=== PATIENT | female | born 1950 | race Caucasian/White ===

== ENCOUNTER 2023-07-26 16:06 | Emergency (ER) | payer MEDICARE ==
[~2023-07-26] VITALS: Ht 172.7 cm; Wt 77.0 kg
[2023-07-26] MEDS ORDERED: KETOROLAC TROMETHAMINE 30 MG/ML VIAL IV ONE (16:15)
[2023-07-26] MEDS ORDERED: SODIUM CHLORIDE 0.9% 1,000 ML IV ONE (16:15)
[2023-07-26] MEDS ORDERED: diphenhydrAMINE HCL 50 MG/ML VIAL IV ONE (16:15)
[2023-07-26] MEDS ORDERED: METOCLOPRAMIDE HCL 10 MG/2 ML SDV IV ONE (16:15)
[2023-07-26] MEDS ORDERED: DEXAMETHASONE SOD PHOS 10 MG/ML VIAL IV ONE (16:15)
[2023-07-26 16:39] LABS: BASOPHILS 0.7 % (0-2); EOSINOPHILS 5.1 % (0-6); HEMATOCRIT 41.1 % (35.0-50.0); HEMOGLOBIN 13.5 g/dL (12.0-18.0); LYMPHOCYTES 30.7 % (24-44); MCH 27.7 (27-36); MCHC 32.9 g/dl (30-36); MCV 84.3 fl (81-99); NEUTROPHILS 53.5 % (39-80); PLATELET COUNT 217 K/uL (140-440); RBC 4.87 M/ul (4.3-5.7); RDW 15.2 (10.5-15.0)
[2023-07-26 16:52] LABS: ALBUMIN 3.2 g/dL (3.4-5.0); ALBUMIN/GLOBULIN RATIO 0.8 (1.1-2.4); ANION GAP 11.3 (7-21); BILIRUBIN, TOTAL 0.3 ng/dL (0.2-1.0); BUN/CREATININE RATIO 20.23 (6.0-28.6); CALCIUM 8.1 mg/dL (8.5-10.1); CREATININE, SERUM 0.84 mg/dL (0.55-1.02); POTASSIUM 3.3 mmol/L (3.5-5.1); PROTEIN, TOTAL 7.2 g/dL (6.4-8.2)
[2023-07-26] MEDS ORDERED: MORPHINE SULFATE 4 MG/ML VIAL IV ONE (17:00)
[2023-07-26] MEDS ORDERED: MORPHINE SULFATE 10 MG/ML VIAL IV ONE (17:00)
[2023-07-26] MEDS ORDERED: MORPHINE SULFATE 4 MG/ML VIAL ONE (17:01)
[2023-07-26 18:43] VITALS: BP 160/80
[2023-07-29] MEDS ORDERED: VENTOLIN HFA18 GM INH (09:51)
== END 2023-07-26 18:42 | disposition home or self-care (01) ==
LOC: ED 16:06
PROVIDERS: Emergency Medicine
DX: G43.909 Migraine, unspecified, not intractable, without status migrainosus (principal); Z88.8 Allergy status to other drugs, medicaments and biological substances
CPT/HCPCS: 36415; 80053; 85025; 96374; 96375; 99283-25; J1100; J1200; J1885; J2270; J2765; J7030

== ENCOUNTER 2023-07-27 19:29 | Emergency (ER) | payer MEDICARE ==
[~2023-07-27] VITALS: Ht 172.7 cm; Wt 77.2 kg
--- OUTSIDE RECORDS SUMMARY | 2023-07-27 19:38 | XMS ---
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 - 2 Visits in 30 Days CARE PROVIDERS There are no care providers on record at this time. Kathy has no Care Guidelines for this patient. Anai VISIT COUNT (12 MO.) [facility] TOTAL 2 NOTE: Visits indicate total known visits. ED/[facility] [place]ING (12 MO.) [facility] [place] [facility] COMPLAINT: - HEADACHE 07/26/2023 16:06 [facility] [place] TYPE: Emergency COMPLAINT: - NAUSEA INPATIENT VISIT TRACKING (12 MO.) No inpatient visits to display in this time frame [id number]
[2023-07-27] MEDS ORDERED: diphenhydrAMINE HCL 50 MG/ML VIAL IV ONE (20:15)
[2023-07-27] MEDS ORDERED: KETOROLAC TROMETHAMINE 30 MG/ML VIAL IV ONE (20:15)
[2023-07-27] MEDS ORDERED: LACTATED RINGER'S 1,000 ML IV ONE (20:15)
[2023-07-27] MEDS ORDERED: METOCLOPRAMIDE HCL 10 MG/2 ML SDV IV ONE (20:15)
[2023-07-27] MEDS ORDERED: MORPHINE SULFATE 4 MG/ML VIAL IV ONE ×2 (20:15→22:15)
[2023-07-27] MEDS ORDERED: HYDROCODONE/APAP 10/325 1 TAB PO ONE (22:45)
[2023-07-27 23:17] VITALS: BP 157/97
[2023-07-29] MEDS ORDERED: VENTOLIN HFA18 GM INH (09:51)
== END 2023-07-27 23:19 | disposition home or self-care (01) ==
LOC: ED 19:29
DX: G43.909 Migraine, unspecified, not intractable, without status migrainosus (principal); I10 Essential (primary) hypertension; Z88.8 Allergy status to other drugs, medicaments and biological substances
CPT/HCPCS: 96374; 96375; 96376; 99283-25; A9270; J1200; J1885; J2270; J2765; J7121

== ENCOUNTER 2023-07-30 00:55 | Emergency (ER) | payer MEDICARE ==
[~2023-07-30] VITALS: Ht 172.7 cm; Wt 78.0 kg
--- OUTSIDE RECORDS SUMMARY | ~2023-07-30 | XMS | Continuity of Care Document ---
Demographics + + + | Address | [address] | | | [place] [address] | + + + | Preferred Language | Unknown | + + + | Marital Status | unknown | + + + | Uatsdin Affiliation | Unknown | + + + | Race | White | + + + | Ethnic Group | Unknown | + + + Author + + + | Author | [facility] | + + + | Organization | [facility] | + + + | Address | [address] | | | [place] [address] | + + + | Phone | | + + + Care Team Providers + + + + | Care Supervisor Jewelry Department Name | Role | Phone | + [...]
[~2023-07-30 00:55] MED LIST: VENTOLIN HFA18 GM INH
--- OUTSIDE RECORDS SUMMARY | 2023-07-30 00:59 | XMS ---
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 Guidelines Source: [facility] Guidelines Date: 07/17/2022 Additional Information: Andria Fabian MD\T\nbsp;\T\nbsp; [address]\T\nbsp;\T\nbsp; [place] [address]\T\nbsp;\T\nbsp; \T\nbsp;\T\nbsp; \ T\nbsp;\T\nbsp; Additional care guidelines exist for the following facilities: [facility] ( 02/21/2018 ) Aureliano Pena ( 01/29/2017 ) Anai VISIT COUNT (12 MO.) [address] [place] [address] Aureliano Pena [address] [place] [address] TOTAL 11 NOTE: Visits indicate total known visits. ED/UCC VISIT TRACKING (12 MO.) 07/30/2023 00:56 CAL[facility]IN [facility] TYPE: Emergency COMPLAINT: - MIGRAINE 07/29/2023 09:32 [facility] [place] TYPE: Emergency COMPLAINT: - HEADACHE 01/25/2023 20:02 [facility] DIAGNOSES: - Cellulitis of left lower limb - Chest pain, unspecified - L FOOT PAIN 01/25/2023 11:47 [facility] TYPE: Emergency DIAGNOSES: - Pain in left ankle and joints of left foot - Sprain of other ligament of left ankle, initial encounter - ems to triage - Leg Pain 01/23/2023 13:45 [facility] TYPE: Emergency DIAGNOSES: - Sprain of unspecified ligament of left ankle, initial encounter - Ankle Injury - EMS to Triage 01/22/2023 02:43 [facility] TYPE: Emergency DIAGNOSES: - Sprain of unspecified ligament of left ankle, initial encounter - Ankle injury 10/30/2022 15:52 [facility] TYPE: Emergency DIAGNOSES: - Chest pain, unspecified - Syncope and collapse - SOB/HEAT EXPOSURE 10/29/2022 16:14 [facility] TYPE: Emergency DIAGNOSES: - Chest pain, unspecified - Unspecified abdominal pain - Chest Pain - EMS 10/15/2022 16:54 [facility] TYPE: Emergency DIAGNOSES: - Acute and chronic respiratory failure, unspecified whether with hypoxia or hypercapnia - Moderate persistent asthma with (acute) exacerbation - SOB 10/10/2022 22:21 [facility] TYPE: Emergency DIAGNOSES: - Other chest pain - Chest Pain - EMS - Shortness of Breath 10/04/2022 16:37 [facility] TYPE: Emergency DIAGNOSES: - Chest Pain - EMS - Shortness of Breath INPATIENT VISIT TRACKING (12 MO.) 10/04/2022 16:37 [facility] [place] TYPE: General Medicine DIAGNOSES: - Acute respiratory failure with hypoxia - Moderate persistent asthma with (acute) exacerbation - Other sites of candidiasis - Chest Pain - Shortness of Breath [id number]
[2023-07-30] MEDS ORDERED: HYDROCODONE/ACETA 5/325 TAB PO ONE (01:15)
[2023-07-30] MEDS ORDERED: DEXAMETHASONE SOD PHOS 10 MG/ML VIAL IV ONE (01:30)
[2023-07-30] MEDS ORDERED: PROCHLORPERAZINE EDISYLATE 10 MG/2 ML VIAL IV ONE (01:30)
[2023-07-30] MEDS ORDERED: LACTATED RINGER'S 1,000 ML IV ONE (01:30)
[2023-07-30] MEDS ORDERED: diphenhydrAMINE HCL 50 MG/ML VIAL IV ONE (01:30)
[2023-07-30 02:32] LABS: HEMATOCRIT 41.6 % (35.0-50.0); HEMOGLOBIN 13.5 g/dL (12.0-18.0); MCH 27.3 (27-36); MCHC 32.5 g/dl (30-36); MCV 83.9 fl (81-99); PLATELET COUNT 228 K/uL (140-440); RBC 4.96 M/ul (4.3-5.7); RDW 15.6 (10.5-15.0)
[2023-07-30 02:54] LABS: LYMPHOCYTES, MANUAL DIFF 14; MONOCYTES, MANUAL DIFF 4; NEUTROPHILS, MANUAL DIFF 82
[2023-07-30 02:56] LABS: ALBUMIN/GLOBULIN RATIO 0.91 (1.1-2.4); ANION GAP 13.7 (7-21); BILIRUBIN, TOTAL 0.3 ng/dL (0.2-1.0); BUN/CREATININE RATIO 26.19 (6.0-28.6); CALCIUM 8.7 mg/dL (8.5-10.1); CREATININE, SERUM 0.84 mg/dL (0.55-1.02); POTASSIUM 3.7 mmol/L (3.5-5.1); PROTEIN, TOTAL 6.3 g/dL (6.4-8.2); TSH, 3RD GENERATION 0.341 uIU/mL (0.358-3.740)
[2023-07-30] MEDS ORDERED: ACETAMINOPHEN 325 MG TAB PO ONE (03:00)
[2023-07-30 03:53] VITALS: BP 168/72
== END 2023-07-30 03:53 | disposition home or self-care (01) ==
LOC: ED 00:55
PROVIDERS: Internal Medicine
DX: G43.909 Migraine, unspecified, not intractable, without status migrainosus (principal); I10 Essential (primary) hypertension; Z88.6 Allergy status to analgesic agent; Z91.018 Allergy to other foods; Z79.51 Long term (current) use of inhaled steroids
CPT/HCPCS: 36415; 70450; 80053; 84443; 85025; 86140; 96374; 96375; 99284-25; A9270; J0780; J1100; J1200

== ENCOUNTER 2023-07-31 14:09 | Emergency (ER) | payer MEDICARE ==
[~2023-07-31] VITALS: Ht 172.7 cm; Wt 95.9 kg
--- OUTSIDE RECORDS SUMMARY | 2023-07-31 14:18 | XMS ---
PreManage Notification: ADAM DIAS Security Business Objects Events No recent Security Events currently on file CRITERIA MET - [facility] - 2 Visits in 30 Days - [facility] - Has Care Guidelines CARE PROVIDERS There are no care providers on record at this time. Guidelines Source: [facility] Guidelines Date: 07/17/2022 Additional Information: Andria Fabian MD\T\nbsp;\T\nbsp; [address]\T\nbsp;\T\nbsp; [place] [address]\T\nbsp;\T\nbsp; \T\nbsp;\T\nbsp; \ T\nbsp;\T\nbsp; Additional care guidelines exist for the following facilities: [facility] ( 02/21/2018 ) Aureliano Pena ( 01/29/2017 ) Anai VISIT COUNT (12 MO.) 5 [place] [address] Aureliano Pena TOTAL 14 NOTE: Visits indicate total known visits. ED/UCC VISIT TRACKING (12 MO.) 07/31/2023 14:11 [facility] [place] TYPE: Emergency COMPLAINT: - CHEST PAIN 07/30/2023 00:56 [facility] [place] TYPE: Emergency COMPLAINT: - MIGRAINE 07/29/2023 09:32 [facility] [place] TYPE: Emergency COMPLAINT: - HEADACHE DIAGNOSES: - Allergy status to narcotic agent - Allergy status to other drugs, medicaments and biological substances - Essential (primary) hypertension - Headache, unspecified - Migraine, unspecified, not intractable, without status migrainosus 07/27/2023 19:30 [facility] [place] TYPE: Emergency COMPLAINT: - HEADACHE 07/26/2023 16:06 [facility] [place] TYPE: Emergency COMPLAINT: - NAUSEA DIAGNOSES: - Allergy status to other drugs, medicaments and biological substances - Migraine, unspecified, not intractable, without status migrainosus 01/25/2023 20:02 [facility] TYPE: Emergency DIAGNOSES: - Cellulitis of left lower limb - Chest pain, unspecified - L FOOT PAIN 01/25/2023 11:47 [facility] [place] TYPE: Emergency DIAGNOSES: - Pain in left ankle and joints of left foot - Sprain of other ligament of left ankle, initial encounter - ems to triage - Leg Pain 01/23/2023 13:45 [facility] [place] TYPE: Emergency DIAGNOSES: - Sprain of unspecified ligament of left ankle, initial encounter - Ankle Injury - EMS to Triage 01/22/2023 02:43 [facility] TYPE: Emergency DIAGNOSES: - Sprain of unspecified ligament of left ankle, initial encounter - Ankle injury 10/30/2022 15:52 [facility] TYPE: Emergency DIAGNOSES: - Chest pain, unspecified - Syncope and collapse - SOB/HEAT EXPOSURE 10/29/2022 16:14 [facility] [place] TYPE: Emergency DIAGNOSES: - Chest pain, unspecified - Unspecified abdominal pain - Chest Pain - EMS 10/15/2022 16:54 [facility] TYPE: Emergency DIAGNOSES: - Acute and chronic respiratory failure, unspecified whether with hypoxia or hypercapnia - Moderate persistent asthma with (acute) exacerbation - SOB 10/10/2022 22:21 [facility] [place] TYPE: Emergency DIAGNOSES: - Other chest pain - Chest Pain - EMS - Shortness of Breath 10/04/2022 16:37 [facility] [place] TYPE: Emergency DIAGNOSES: - Chest Pain - EMS - Shortness of Breath INPATIENT VISIT TRACKING (12 MO.) 10/04/2022 16:37 [facility] [place] TYPE: General Medicine DIAGNOSES: - Acute respiratory failure with hypoxia - Moderate persistent asthma with (acute) exacerbation - Other sites of candidiasis - Chest Pain - Shortness of Breath [id number]
[2023-07-31 14:32] LABS: HEMOGLOBIN 14.2 g/dL (12.0-18.0); MCH 27.5 (27-36); MCHC 32.7 g/dl (30-36); MCV 84.1 fl (81-99)
[2023-07-31 14:34] LABS: HEMATOCRIT 43.3 % (35.0-50.0); PLATELET COUNT 279 K/uL (140-440); RBC 5.15 M/ul (4.3-5.7); RDW 15.6 (10.5-15.0)
[2023-07-31 14:51] LABS: BANDS, MANUAL DIFF 1; BASOPHILS, MANUAL DIFF 2; EOSINOPHILS, MANUAL DIFF 1; LYMPHOCYTES, MANUAL DIFF 30; MONOCYTES, MANUAL DIFF 4; NEUTROPHILS, MANUAL DIFF 62
[2023-07-31 14:53] LABS: ALBUMIN 3.4 g/dL (3.4-5.0); ALBUMIN/GLOBULIN RATIO 1.03 (1.1-2.4); ANION GAP 11.8 (7-21); BILIRUBIN, TOTAL 0.3 ng/dL (0.2-1.0); BUN/CREATININE RATIO 20.61 (6.0-28.6); CALCIUM 8.5 mg/dL (8.5-10.1); CREATININE, SERUM 0.97 mg/dL (0.55-1.02); MAGNESIUM 1.7 mg/dL (1.8-2.4); POTASSIUM 2.8 mmol/L (3.5-5.1); PROTEIN, TOTAL 6.7 g/dL (6.4-8.2)
[2023-07-31] MEDS ORDERED: SODIUM CHLORIDE 0.9% 1,000 ML IV PRN (15:15)
[2023-07-31] MEDS ORDERED: diphenhydrAMINE HCL 50 MG/ML VIAL IV ONE (15:30)
[2023-07-31] MEDS ORDERED: KETOROLAC TROMETHAMINE 15 MG/ML VIAL IV ONE (15:30)
[2023-07-31] MEDS ORDERED: PROCHLORPERAZINE EDISYLATE 10 MG/2 ML VIAL IV ONE (15:30)
[2023-07-31 15:58] VITALS: BP 165/75
--- NOTE | 2023-07-31 21:36 | EKG ---
[facility] [address] [facility] [address] [place] [address] Signed Normal sinus rhythm Moderate voltage criteria for LVH, may be normal variant ( R in aVL , [place] product ) Borderline ECG No previous ECGs available Confirmed by Hever Hollins MD () on 07/31/2023 9:36:56 PM Electronically Signed By: HEVER HOLLINS MD 07/31/23 2136 PATIENT NAME: SUNSHINE KAPLANADAM Electrocardiogram DATE OF : 46 PHYSICIAN: HEVER HOLLINS MD REPORT #: [id number] REPORT IS CONFIDENTIAL AND NOT TO BE RELEASED WITHOUT AUTHORIZATION
== END 2023-07-31 16:02 | disposition left against medical advice (07) ==
LOC: ED 14:09
PROVIDERS: Emergency Medicine
DX: R07.89 Other chest pain (principal); R51.9 Headache, unspecified; I10 Essential (primary) hypertension; Z88.5 Allergy status to narcotic agent; Z88.8 Allergy status to other drugs, medicaments and biological substances; Z53.29 Procedure and treatment not carried out because of patient's decision for other reasons
CPT/HCPCS: 36415; 71045; 80053; 83735; 84484; 85025; 93005; 93010; 96374; 96375; J0780; J1200; J1885; J7030

== ENCOUNTER 2023-08-02 20:33 | Emergency (ER) | payer MEDICARE ==
[~2023-08-02] VITALS: Ht 172.7 cm; Wt 95.9 kg
--- OUTSIDE RECORDS SUMMARY | ~2023-08-02 | XMS | Continuity of Care Document ---
Demographics + + + | Address | [address] | | | [place] [address] | + + + | Preferred Language | Unknown | + + + | Marital Status | unknown | + + + | Episcopal Affiliation | Unknown | + + + | Race | Unknown | + + + | Ethnic Group | Not or | + + + Author + + + | Author | [facility] | + + + | Organization | [facility] | + + + | Address | [address] | | | [place] [address] | + + + | Phone | | + + + Care Team Providers + + + + | Care Screen Tacker Name | Role | Phone | + [...]
--- OUTSIDE RECORDS SUMMARY | 2023-08-02 20:40 | XMS ---
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 Guidelines Source: [facility] Guidelines Date: 07/17/2022 Additional Information: Andria Fabian MD\T\nbsp;\T\nbsp; [address]\T\nbsp;\T\nbsp; [place] [address]\T\nbsp;\T\nbsp; \T\nbsp;\T\nbsp; \ T\nbsp;\T\nbsp; Additional care guidelines exist for the following facilities: [facility] ( 02/21/2018 ) Aureliano Pena ( 01/29/2017 ) Anai VISIT COUNT (12 MO.) [address] [place] [address] Aureliano Pena TOTAL 16 NOTE: Visits indicate total known visits. ED/UCC VISIT TRACKING (12 MO.) 08/02/2023 20:34 [facility] [place] TYPE: Emergency COMPLAINT: - TOOTHACHE 07/31/2023 17:52 [facility] [place] TYPE: Emergency COMPLAINT: - ANXIETY 07/31/2023 14:11 [facility] [place] TYPE: Emergency COMPLAINT: - CHEST PAIN DIAGNOSES: - Allergy status to narcotic agent - Allergy status to other drugs, medicaments and biological substances - Essential (primary) hypertension - Headache, unspecified - Other chest pain - Procedure and treatment not carried out because of patient's decision for other reasons 07/30/2023 00:[address] [facility] [place] Nicky Portillo [place] TYPE: Emergency COMPLAINT: - MIGRAINE DIAGNOSES: - Allergy status to analgesic agent - Allergy to other foods - Essential (primary) hypertension - shelter (current) use of inhaled steroids - Migraine, unspecified, not intractable, without status migrainosus 07/29/2023 09:[address] [facility] [place] COMPLAINT: - HEADACHE DIAGNOSES: - Allergy status to narcotic agent - Allergy status to other drugs, medicaments and biological substances - Essential (primary) hypertension - Headache, unspecified - Migraine, unspecified, not intractable, without status migrainosus 07/27/2023 19:[address] [facility] [place] HGio [place]illo [place] TYPE: Emergency COMPLAINT: - HEADACHE DIAGNOSES: - Allergy status to other drugs, medicaments and biological substances - Essential (primary) hypertension - Migraine, unspecified, not intractable, without status migrainosus 07/26/2023 16:06 [facility] [place] TYPE: Emergency COMPLAINT: - NAUSEA DIAGNOSES: - Allergy status to other drugs, medicaments and biological substances - Migraine, unspecified, not intractable, without status migrainosus 01/25/2023 20:02 [facility] TYPE: Emergency DIAGNOSES: - Cellulitis of left lower limb - Chest pain, unspecified - L FOOT PAIN 01/25/2023 11:47 [facility]NA [facility] TYPE: Emergency DIAGNOSES: - Pain in left ankle and joints of left foot - Sprain of other ligament of left ankle, initial encounter - ems to triage - Leg Pain 01/23/2023 13:45 [facility] TYPE: Emergency DIAGNOSES: - Sprain of unspecified ligament of left ankle, initial encounter - Ankle Injury - EMS to Triage 01/22/2023 02:43 [facility] TYPE: Emergency DIAGNOSES: - Sprain of unspecified ligament of left ankle, initial encounter - Ankle injury 10/30/2022 15:52 [facility] TYPE: Emergency DIAGNOSES: - Chest pain, unspecified - Syncope and collapse - SOB/HEAT EXPOSURE 10/29/2022 16:14 [facility] [place] TYPE: Emergency DIAGNOSES: - Chest pain, unspecified - Unspecified abdominal pain - Chest Pain - EMS 10/15/2022 16:54 [facility] TYPE: Emergency DIAGNOSES: - Acute and chronic respiratory failure, unspecified whether with hypoxia or hypercapnia - Moderate persistent asthma with (acute) exacerbation - SOB 10/10/2022 22:21 [facility] [place] TYPE: Emergency DIAGNOSES: - Other chest pain - Chest Pain - EMS - Shortness of Breath 10/04/2022 16:37 [facility] [place] TYPE: Emergency DIAGNOSES: - Chest Pain - EMS - Shortness of Breath INPATIENT VISIT TRACKING (12 MO.) 10/04/2022 [facility] DIAGNOSES: - Acute respiratory failure with hypoxia - Moderate persistent asthma with (acute) exacerbation - Other sites of candidiasis - Chest Pain - Shortness of Breath [id number]
[2023-08-02] MEDS ORDERED: HYDROCODONE/ACETA 5/325 TAB PO ONE (21:00)
[2023-08-02] MEDS ORDERED: HYDROCODON-ACE1 EA10 PO (21:04)
[2023-08-02] MEDS ORDERED: CEPHALEXIN500 M1 PO (21:04)
[2023-08-02] MEDS ORDERED: CEPHALEXIN MONOHYDRATE 500 MG HOME.PACK PO ONE (21:15)
[2023-08-02 21:28] VITALS: BP 162/86
== END 2023-08-02 21:29 | disposition home or self-care (01) ==
LOC: ED 20:33
DX: K04.7 Periapical abscess without sinus (principal); I10 Essential (primary) hypertension; Z88.8 Allergy status to other drugs, medicaments and biological substances
CPT/HCPCS: 99285-25; A9270

== ENCOUNTER 2023-08-03 16:16 | Emergency (ER) | payer MEDICARE ==
[~2023-08-03] VITALS: Ht 172.7 cm; Wt 77.7 kg
[~2023-08-03 16:16] MED LIST changes: +CEPHALEXIN500 M1 PO; +HYDROCODON-ACE1 EA10 PO
--- OUTSIDE RECORDS SUMMARY | 2023-08-03 16:24 | XMS ---
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 - 2 Visits in 30 Days - [facility] - Has Care Guidelines CARE PROVIDERS There are no care providers on record at this time. Guidelines Source: [facility] Guidelines Date: 07/17/2022 Additional Information: Andria Fabian MD\T\nbsp;\T\nbsp; [address]\T\nbsp;\T\nbsp; [place] [address]\T\nbsp;\T\nbsp; \T\nbsp;\T\nbsp; \ T\nbsp;\T\nbsp; Additional care guidelines exist for the following facilities: [facility] ( 02/21/2018 ) Aureliano Pena ( 01/29/2017 ) Anai VISIT COUNT (12 MO.) 8 [place] [address] Aureliano Pena TOTAL 17 NOTE: Visits indicate total known visits. ED/UCC VISIT TRACKING (12 MO.) 08/03/2023 16:16 [facility] [place] TYPE: Emergency COMPLAINT: - CHEST PAIN 08/02/2023 20:34 [facility] [place] TYPE: Emergency COMPLAINT: - TOOTHACHE 07/31/2023 17:52 [facility] [place] TYPE: Emergency COMPLAINT: - ANXIETY 07/31/2023 14:11 [facility] TYPE: Emergency COMPLAINT: - CHEST PAIN DIAGNOSES: - Allergy status to narcotic agent - Allergy status to other drugs, medicaments and biological substances - Essential (primary) hypertension - Headache, unspecified - Other chest pain - Procedure and treatment not carried out because of patient's decision for other reasons 07/30/2023 00:56 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 [place] TYPE: Emergency COMPLAINT: - HEADACHE DIAGNOSES: - Allergy status to narcotic agent - Allergy status to other drugs, medicaments and biological substances - Essential (primary) hypertension - Headache, unspecified - Migraine, unspecified, not intractable, without status migrainosus 07/27/2023 19:30 [facility] TYPE: Emergency COMPLAINT: - HEADACHE DIAGNOSES: - Allergy status to other drugs, medicaments and biological substances - Essential (primary) hypertension - Migraine, unspecified, not intractable, without status migrainosus 07/26/2023 16:06 [facility] TYPE: Emergency COMPLAINT: - NAUSEA DIAGNOSES: - Allergy status to other drugs, medicaments and biological substances - Migraine, unspecified, not intractable, without status migrainosus 01/25/2023 20:02 [facility] TYPE: Emergency DIAGNOSES: - Cellulitis of left lower limb - Chest pain, unspecified - L FOOT PAIN 01/25/2023 11:47 [facility] [place] TYPE: Emergency DIAGNOSES: - Pain in left ankle and joints of left foot - Sprain of other ligament of left ankle, initial encounter - ems to triage - Leg Pain 01/23/2023 13:45 [facility] [place] TYPE: Emergency DIAGNOSES: - Sprain of unspecified ligament of left ankle, initial encounter - Ankle Injury - EMS to Triage 01/22/2023 02:43 [facility] DIAGNOSES: - Sprain of unspecified ligament of left ankle, initial encounter - Ankle injury 10/30/2022 15:52 [facility] DIAGNOSES: - Chest pain, unspecified - Syncope and collapse - SOB/HEAT EXPOSURE 10/29/2022 16:14 [facility] [place] TYPE: Emergency DIAGNOSES: - Chest pain, unspecified - Unspecified abdominal pain - Chest Pain - EMS 10/15/2022 16:54 Aureliano Pena [facility] TYPE: Emergency DIAGNOSES: - Acute and chronic respiratory failure, unspecified whether with hypoxia or hypercapnia - Moderate persistent asthma with (acute) exacerbation - SOB 10/10/2022 22:21 [facility] [place] TYPE: Emergency DIAGNOSES: - Other chest pain - Chest Pain - EMS - Shortness of Breath 10/04/2022 16:37 [facility] [place] TYPE: Emergency DIAGNOSES: - Chest Pain - EMS - Shortness of Breath INPATIENT VISIT TRACKING (12 MO.) 10/04/2022 16:37 [facility] TYPE: General Medicine DIAGNOSES: - Acute respiratory failure with hypoxia - Moderate persistent asthma with (acute) exacerbation - Other sites of candidiasis - Chest Pain - Shortness of Breath [id number]
[2023-08-03] MEDS ORDERED: NITROGLYCERIN 0.4 MG SUBL SL PRN (16:45)
[2023-08-03 16:53] LABS: BASOPHILS 0.6 % (0-2); EOSINOPHILS 1.3 % (0-6); HEMATOCRIT 39.9 % (35.0-50.0); HEMOGLOBIN 13.3 g/dL (12.0-18.0); LYMPHOCYTES 18.3 % (24-44); MCH 27.9 (27-36); MCHC 33.4 g/dl (30-36); MCV 83.6 fl (81-99); MONOCYTES 7.6 % (0-12); NEUTROPHILS 72.2 % (39-80); PLATELET COUNT 192 K/uL (140-440); RBC 4.77 M/ul (4.3-5.7); RDW 15.8 (10.5-15.0)
[2023-08-03 17:10] VITALS: BP 156/70
[2023-08-03 17:10] LABS: ALBUMIN/GLOBULIN RATIO 0.91 (1.1-2.4); ANION GAP 11.3 (7-21); BILIRUBIN, TOTAL 0.3 ng/dL (0.2-1.0); BUN/CREATININE RATIO 17.44 (6.0-28.6); CALCIUM 8.6 mg/dL (8.5-10.1); CREATININE, SERUM 0.86 mg/dL (0.55-1.02); POTASSIUM 3.3 mmol/L (3.5-5.1); PROTEIN, TOTAL 6.3 g/dL (6.4-8.2)
--- NOTE | 2023-08-05 12:51 | EKG ---
[facility] [address] [facility] [place] [address] Signed Normal sinus rhythm Minimal voltage criteria for LVH, may be normal variant ( R in aVL ) Borderline ECG No previous ECGs available Confirmed by ELLA DELEON MD ([id number]) on 08/05/2023 12:51:46 PM Electronically Signed By: ELLA DELEON 08/05/23 1251 PATIENT NAME: ADAM DIAS Electrocardiogram DATE OF : 46 PHYSICIAN: ELLA DELEON REPORT #: [id number] REPORT IS CONFIDENTIAL AND NOT TO BE RELEASED WITHOUT AUTHORIZATION
== END 2023-08-03 17:10 | disposition left against medical advice (07) ==
LOC: ED 16:16
PROVIDERS: Emergency Medicine
DX: R07.89 Other chest pain (principal); Z53.29 Procedure and treatment not carried out because of patient's decision for other reasons; I10 Essential (primary) hypertension; Z88.6 Allergy status to analgesic agent; Z91.018 Allergy to other foods; Z88.8 Allergy status to other drugs, medicaments and biological substances
CPT/HCPCS: 36415; 80053; 84484; 85025; 93005; 93010; 99285-25

== ENCOUNTER 2023-08-08 12:21 | Emergency (ER) | payer MEDICARE ==
[~2023-08-08] VITALS: Ht 172.7 cm; Wt 99.7 kg
--- OUTSIDE RECORDS SUMMARY | ~2023-08-08 | XMS | Continuity of Care Document ---
Demographics + + + | Address | [address] | | | [place] [address] | + + + | Preferred Language | Unknown | + + + | Marital Status | unknown | + + + | Mormonism Affiliation | Unknown | + + + | Race | White | + + + | Ethnic Group | Not or | + + + Author + + + | Author | [facility] | + + + | Organization | [facility] | + + + | Address | [address] | | | [place] [address] | + + + | Phone | | + + + Care Team Providers + + + + | Care Dough Sheeter Name | Role | Phone | + [...]
--- OUTSIDE RECORDS SUMMARY | 2023-08-08 12:28 | XMS ---
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 Guidelines Source: [facility] Guidelines Date: 07/17/2022 Additional Information: Andria Fabian MD\T\nbsp;\T\nbsp; [address]\T\nbsp;\T\nbsp; [place] [address]\T\nbsp;\T\nbsp; \T\nbsp;\T\nbsp; \ T\nbsp;\T\nbsp; Additional care guidelines exist for the following facilities: [facility] ( 02/21/2018 ) Aureliano Pena ( 01/29/2017 ) Anai VISIT COUNT (12 MO.) [address] [place] [address] Aureliano Pena TOTAL 19 NOTE: Visits indicate total known visits. ED/UCC VISIT TRACKING (12 MO.) 08/08/2023 12:22 [facility] [place] TYPE: Emergency COMPLAINT: - CHEST PAIN 08/06/2023 10:54 [facility] [place] TYPE: Emergency COMPLAINT: - KIDNEY PAIN DIAGNOSES: - Allergy status to analgesic agent - Allergy status to other drugs, medicaments and biological substances - Allergy to other foods - Essential (primary) hypertension - Nausea with vomiting, unspecified - Unspecified abdominal pain 08/03/2023 16:16 [facility] [place] TYPE: Emergency COMPLAINT: - CHEST PAIN DIAGNOSES: - Allergy status to analgesic agent - Allergy status to other drugs, medicaments and biological substances - Allergy to other foods - Essential (primary) hypertension - Other chest pain - Procedure and treatment not carried out because of patient's decision for other reasons 08/02/2023 20:34 [facility] [place] TYPE: Emergency COMPLAINT: - TOOTHACHE DIAGNOSES: - Allergy status to other drugs, medicaments and biological substances - Essential (primary) hypertension - Other specified disorders of teeth and supporting structures - Periapical abscess without sinus 07/31/2023 17:52 [facility] [place] TYPE: Emergency [...] patient's decision for other reasons 07/30/2023 00:56 [facility] [place]: [place] COMPLAINT: - MIGRAINE DIAGNOSES: - Allergy status to analgesic agent - Allergy to other foods - Essential (primary) hypertension - 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 - Migraine, unspecified, not intractable, without status migrainosus 07/29/2023 09:32 [facility] [place] TYPE: Emergency COMPLAINT: - HEADACHE DIAGNOSES: - Allergy status to narcotic agent - Allergy status to other drugs, medicaments and biological substances - Essential (primary) hypertension - Headache, unspecified - Migraine, unspecified, not intractable, without status migrainosus 07/27/2023 19:30 [facility] [place] TYPE: Emergency COMPLAINT: - HEADACHE DIAGNOSES: - Allergy status to other drugs, medicaments and biological substances - Essential (primary) hypertension - Migraine, unspecified, not intractable, without status migrainosus 07/26/2023 16:06 [facility] TYPE: Emergency COMPLAINT: - NAUSEA DIAGNOSES: - Allergy status to other drugs, medicaments and biological substances - Migraine, unspecified, not intractable, without status migrainosus 01/25/2023 20:02 [facility] TYPE: Emergency DIAGNOSES: - Cellulitis of left lower limb - Chest pain, unspecified - L FOOT PAIN 01/25/2023 11:47 [facility] TYPE: Emergency DIAGNOSES: - Pain in left ankle and joints of left foot - Sprain of other ligament of left ankle, initial encounter - ems to triage - Leg Pain 01/23/2023 13:45 [facility] TYPE: Emergency DIAGNOSES: - Sprain of unspecified ligament of left ankle, initial encounter - Ankle Injury - EMS to Triage 01/22/2023 02:[address] [facility] TYPE: Emergency DIAGNOSES: - Sprain of unspecified ligament of left ankle, initial encounter - Ankle injury 10/30/2022 15:[address] [facility] TYPE: Emergency DIAGNOSES: - Chest pain, unspecified - Syncope and collapse - SOB/HEAT EXPOSURE 10/29/2022 16:14 [facility] [place] TYPE: Emergency DIAGNOSES: - Chest pain, unspecified - Unspecified abdominal pain - Chest Pain - EMS 10/15/2022 16:[address] [facility] TYPE: Emergency DIAGNOSES: - Acute and chronic respiratory failure, unspecified whether with hypoxia or hypercapnia - Moderate persistent asthma with (acute) exacerbation - SOB 10/10/2022 22:21 [facility] TYPE: Emergency DIAGNOSES: - Other chest pain - Chest Pain - EMS - Shortness of Breath 10/04/2022 16:37 [facility] TYPE: Emergency DIAGNOSES: - Chest Pain - EMS - Shortness of Breath INPATIENT VISIT TRACKING (12 MO.) 10/04/2022 16:37 [facility] TYPE: General Medicine DIAGNOSES: - Acute respiratory failure with hypoxia - Moderate persistent asthma with (acute) exacerbation - Other sites of candidiasis - Chest Pain - Shortness of Breath [id number]
[2023-08-08 12:44] LABS: BASOPHILS 0.5 % (0-2); EOSINOPHILS 1.5 % (0-6); HEMATOCRIT 39.1 % (35.0-50.0); HEMOGLOBIN 12.9 g/dL (12.0-18.0); LYMPHOCYTES 21.3 % (24-44); MCH 27.9 (27-36); MCV 84.5 fl (81-99); MONOCYTES 7.8 % (0-12); NEUTROPHILS 68.9 % (39-80); PLATELET COUNT 197 K/uL (140-440); RBC 4.62 M/ul (4.3-5.7); RDW 15.7 (10.5-15.0)
[2023-08-08] MEDS ORDERED: LORazepam 2 MG/ML VIAL IV ONE (12:45)
[2023-08-08] MEDS ORDERED: KETOROLAC TROMETHAMINE 15 MG/ML VIAL IV ONE (12:45)
[2023-08-08 13:01] LABS: ALBUMIN 2.9 g/dL (3.4-5.0); ALBUMIN/GLOBULIN RATIO 0.81 (1.1-2.4); ANION GAP 14.5 (7-21); BILIRUBIN, TOTAL 0.5 ng/dL (0.2-1.0); BUN/CREATININE RATIO 10.71 (6.0-28.6); CALCIUM 8.6 mg/dL (8.5-10.1); CREATININE, SERUM 0.84 mg/dL (0.55-1.02); MAGNESIUM 1.9 mg/dL (1.8-2.4); POTASSIUM 3.5 mmol/L (3.5-5.1); PROTEIN, TOTAL 6.5 g/dL (6.4-8.2)
[2023-08-08] MEDS ORDERED: NAPROSYN500 MG PO (14:23)
[2023-08-08 14:54] VITALS: BP 134/66
--- NOTE | 2023-08-09 11:58 | EKG ---
[facility] [address] [place] [address] Signed Normal sinus rhythm Minimal voltage criteria for LVH, may be normal variant ( R in aVL ) Borderline ECG When compared with ECG of 03-AUG-2023 16:23, No significant change was found Confirmed by Nishant Zapien ([id number]) on 08/09/2023 11:58:30 AM Electronically Signed By: NISHANT ZAPIEN MD 08/09/23 1158 PATIENT NAME: ADAM DIAS Electrocardiogram DATE OF : 46 PHYSICIAN: NISHANT ZAPIEN MD REPORT #: [id number] REPORT IS CONFIDENTIAL AND NOT TO BE RELEASED WITHOUT AUTHORIZATION
== END 2023-08-08 14:56 | disposition home or self-care (01) ==
LOC: ED 12:21
PROVIDERS: Emergency Medicine
DX: R07.89 Other chest pain (principal); I10 Essential (primary) hypertension; Z88.6 Allergy status to analgesic agent; Z91.018 Allergy to other foods; Z88.8 Allergy status to other drugs, medicaments and biological substances; Z90.49 Acquired absence of other specified parts of digestive tract
CPT/HCPCS: 36415; 71045; 80053; 83735; 84484; 85025; 85379; 93005; 93010; 96374; 96375; 99285-25; J1885; J2060

== ENCOUNTER 2023-08-10 09:26 | Emergency (ER) | payer MEDICARE ==
[~2023-08-10] VITALS: Ht 172.7 cm; Wt 95.1 kg
--- OUTSIDE RECORDS SUMMARY | ~2023-08-10 | XMS | Continuity of Care Document ---
Demographics + + + | Address | [address] | | | [place] [address] | + + + | Preferred Language | Unknown | + + + | Marital Status | unknown | + + + | Samaritan Affiliation | Unknown | + + + | Race | White | + + + | Ethnic Group | Not or | + + + Author + + + | Author | [facility] | + + + | Organization | [facility] | + + + | Address | [address] | | | [place] [address] | + + + | Phone | | + + + Care Team Providers + + + + | Care Bank Officer Name | Role | Phone | + [...]
[~2023-08-10 09:26] MED LIST changes: +NAPROSYN500 MG PO
--- OUTSIDE RECORDS SUMMARY | 2023-08-10 09:34 | XMS ---
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 Guidelines Source: [facility] Guidelines Date: 07/17/2022 Additional Information: Andria Fabian MD\T\nbsp;\T\nbsp; [address]\T\nbsp;\T\nbsp; [place] [address]\T\nbsp;\T\nbsp; \T\nbsp;\T\nbsp; \ T\nbsp;\T\nbsp; Additional care guidelines exist for the following facilities: [facility] ( 02/21/2018 ) Aureliano Pena ( 01/29/2017 ) Anai VISIT COUNT (12 MO.) [address] [address] Aureliano Pena TOTAL 20 NOTE: Visits indicate total known visits. ED/UCC VISIT TRACKING (12 MO.) 08/10/2023 09:27 [facility] [place] TYPE: Emergency COMPLAINT: - SHORTNESS OF BREATH 08/08/2023 12:22 [facility] [place] TYPE: Emergency COMPLAINT: - CHEST PAIN DIAGNOSES: - Acquired absence of other specified parts of digestive tract - Allergy status to analgesic agent - Allergy status to other drugs, medicaments and biological substances - Allergy to other foods - Chest pain, unspecified - Essential (primary) hypertension - Other chest pain 08/06/2023 10:54 [facility] TYPE: Emergency COMPLAINT: - KIDNEY PAIN DIAGNOSES: - Allergy status to analgesic agent - Allergy status to other drugs, medicaments and biological substances - Allergy to other foods - Essential (primary) hypertension - Nausea with vomiting, unspecified - Unspecified abdominal pain 08/03/2023 16:[address] [facility] [place] TYPE: Emergency COMPLAINT: - CHEST PAIN DIAGNOSES: - Allergy status to analgesic agent - Allergy status to other drugs, medicaments and biological substances - Allergy to other foods - Essential (primary) hypertension - Other chest pain - Procedure and treatment not carried out because of patient's decision for other reasons 08/02/2023 20:[address] [facility] [place] TYPE: Emergency COMPLAINT: - TOOTHACHE DIAGNOSES: - Allergy status to other drugs, medicaments and biological substances - Essential (primary) hypertension - Other specified disorders of teeth and supporting structures - Periapical abscess without sinus 07/31/2023 17:[address] [facility] [place] TYPE: Emergency COMPLAINT: - ANXIETY 07/31/2023 14:[address] [facility] [place] TYPE: Emergency COMPLAINT: - CHEST PAIN DIAGNOSES: - Allergy status to narcotic agent - Allergy status to other drugs, medicaments and biological substances - Essential (primary) hypertension - Headache, unspecified - Other chest pain - Procedure and treatment not carried out because of patient's decision for other reasons 07/30/2023 00:[address] [facility] [place] TYPE: Emergency COMPLAINT: - MIGRAINE DIAGNOSES: - Allergy status to analgesic agent - Allergy to other foods - Essential (primary) hypertension - MCFP (current) use of inhaled steroids - Migraine, unspecified, not intractable, without status migrainosus 07/29/2023 09:[address] [facility] [place] TYPE: Emergency COMPLAINT: - [...] not intractable, without status migrainosus 01/25/2023 20:02 [facility] TYPE: Emergency DIAGNOSES: - Cellulitis of left lower limb - Chest pain, unspecified - L FOOT PAIN 01/25/2023 11:47 [facility] [place] TYPE: Emergency DIAGNOSES: - Pain in left ankle and joints of left foot - Sprain of other ligament of left ankle, initial encounter - ems to triage - Leg Pain 01/23/2023 13:45 [facility] [place] TYPE: Emergency DIAGNOSES: - Sprain of unspecified ligament of left ankle, initial encounter - Ankle Injury - EMS to Triage 01/22/2023 02:43 [facility] TYPE: Emergency DIAGNOSES: - Sprain of unspecified ligament of left ankle, initial encounter - Ankle injury 10/30/2022 15:52 [facility] TYPE: Emergency DIAGNOSES: - Chest pain, unspecified - Syncope and collapse - SOB/HEAT EXPOSURE 10/29/2022 16:14 [facility] [place] TYPE: Emergency DIAGNOSES: - Chest pain, unspecified - Unspecified abdominal pain - Chest Pain - EMS 10/15/2022 16:54 [facility] TYPE: Emergency DIAGNOSES: - Acute and chronic respiratory failure, unspecified whether with hypoxia or hypercapnia - Moderate persistent asthma with (acute) exacerbation - SOB 10/10/2022 22:21 [facility] [place] TYPE: Emergency DIAGNOSES: - Other chest pain - Chest Pain - EMS - Shortness of Breath 10/04/2022 16:37 [facility] [place] TYPE: Emergency DIAGNOSES: - Chest Pain - EMS - Shortness of Breath INPATIENT VISIT TRACKING (12 MO.) 10/04/2022 16:37 [facility] [place] TYPE: General Medicine DIAGNOSES: - Acute respiratory failure with hypoxia - Moderate persistent asthma with (acute) exacerbation - Other sites of candidiasis - Chest Pain - Shortness of Breath [email or web address]
[2023-08-10] MEDS ORDERED: DEXAMETHASONE SOD PHOS 10 MG/ML VIAL IV ONE (11:00)
[2023-08-10] MEDS ORDERED: diphenhydrAMINE HCL 50 MG/ML VIAL IV ONE (11:00)
[2023-08-10] MEDS ORDERED: METOCLOPRAMIDE HCL 10 MG/2 ML SDV IV ONE (11:00)
[2023-08-10] MEDS ORDERED: ACETAMINOPHEN 325 MG TAB PO ONE (11:00)
[2023-08-10] MEDS ORDERED: SODIUM CHLORIDE 0.9% 1,000 ML IV PRN ×2 (11:00→13:00)
[2023-08-10] MEDS ORDERED: PROCHLORPERAZINE EDISYLATE 10 MG/2 ML VIAL IV ONE (13:00)
[2023-08-10] MEDS ORDERED: HALOPERIDOL LACTATE 5 MG/ML VIAL IV ONE (13:00)
[2023-08-10] MEDS ORDERED: ONDANSETRON ODT8 MG PO ×2 (14:44)
[2023-08-10 14:59] VITALS: BP 180/94
[2023-08-10 15:03] LABS: BILIRUBIN, URINE NEGATIVE (negative); BLOOD/HGB, URINE NEGATIVE (Negative); KETONE, URINE NEGATIVE (Negative); LEUK ESTERASE, URINE NEGATIVE (negative); NITRITE, URINE NEGATIVE (negative)
[2023-08-10 15:12] LABS: BACTERIA, URINE NONE SEEN /hpf (negative); CRYSTALS, URINE NONE SEEN (0-1+); EPITHELIAL CELLS, URINE SQUAMOUS 2+ /lpf (0-1+); RED BLOOD CELLS, URINE 0-1 /hpf (0-5); WHITE BLOOD CELLS, URINE 0-1 /HPF (0-5)
[2023-08-10 15:13] LABS: CASTS, URINE NONE SEEN \\lpf; COLLECTION TYPE, URINE CLEAN CATCH; REFLEX CULTURE, URINE No (No)
[2023-08-13] MEDS ORDERED: ONDANSETRON ODT8 MG PO (12:45)
== END 2023-08-10 14:59 | disposition home or self-care (01) ==
LOC: ED 09:26
PROVIDERS: Emergency Medicine
DX: G43.909 Migraine, unspecified, not intractable, without status migrainosus (principal); R10.9 Unspecified abdominal pain; I10 Essential (primary) hypertension; Z88.8 Allergy status to other drugs, medicaments and biological substances
CPT/HCPCS: 81001; 96361; 96374; 96375; 99284-25; A9270; J0780; J1100; J1200; J1630; J2765; J7030

== ENCOUNTER 2023-08-11 08:56 | Emergency (ER) | payer MEDICARE ==
[~2023-08-11] VITALS: Ht 172.7 cm; Wt 77.0 kg
--- OUTSIDE RECORDS SUMMARY | ~2023-08-11 | XMS | Continuity of Care Document ---
Demographics + + + | Address | [address] | | | [place] [address] | + + + | Preferred Language | Unknown | + + + | Marital Status | unknown | + + + | Jehovah'S Witness Affiliation | Unknown | + + + | Race | White | + + + | Ethnic Group | Not or | + + + Author + + + | Author | [facility] | + + + | Organization | [facility] | + + + | Address | [address] | | | [place] [address] | + + + | Phone | | + + + Care Team Providers + + + + | Care Applications Developer Name | Role | Phone | + [...]
[~2023-08-11 08:56] MED LIST changes: +ONDANSETRON ODT8 MG PO
--- OUTSIDE RECORDS SUMMARY | 2023-08-11 09:05 | XMS ---
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 Guidelines Source: Guidelines Date: 07/17/2022 Additional Information: Andria Fabian MD\T\nbsp;\T\nbsp; [address]\T\nbsp;\T\nbsp; [place] [address]\T\nbsp;\T\nbsp; \T\nbsp;\T\nbsp; \ T\nbsp;\T\nbsp; Additional care guidelines exist for the following facilities: [facility] ( 02/21/2018 ) Aureliano Pena ( 01/29/2017 ) Anai VISIT COUNT (12 MO.) [address] [address] Aureliano Pena TOTAL 21 NOTE: Visits indicate total known visits. ED/UCC VISIT TRACKING (12 MO.) 08/11/2023 08:56 [facility] [place] TYPE: Emergency COMPLAINT: - BACK PAIN 08/10/2023 09:27 [facility] [place] TYPE: Emergency COMPLAINT: - SHORTNESS OF BREATH 08/08/2023 12:22 [facility] [place] TYPE: Emergency COMPLAINT: - CHEST PAIN DIAGNOSES: - Acquired absence of other specified parts of digestive tract - Allergy status to analgesic agent - Allergy status to other drugs, medicaments and biological substances - Allergy to other foods - Chest pain, unspecified - Essential (primary) hypertension - Other chest pain 08/06/2023 10:54 [facility] [place] TYPE: Emergency [...] - Periapical abscess without sinus 07/31/2023 17:[address] [facility] [address] [facility] [place] TYPE: Emergency COMPLAINT: - ANXIETY 07/31/2023 14:[address] 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 [place] TYPE: Emergency COMPLAINT: - HEADACHE DIAGNOSES: - Allergy status to narcotic agent - Allergy status to other drugs, medicaments and biological substances - Essential (primary) hypertension - Headache, unspecified - Migraine, unspecified, not intractable, without status migrainosus 07/27/2023 19:30 [facility] [place] TYPE: Emergency COMPLAINT: - HEADACHE DIAGNOSES: - Allergy status to other drugs, medicaments and biological substances - Essential (primary) hypertension - Migraine, unspecified, not intractable, without status migrainosus 07/26/2023 16:06 [facility] [place] TYPE: Emergency COMPLAINT: - NAUSEA DIAGNOSES: - Allergy status to other drugs, medicaments and biological substances - Migraine, unspecified, not intractable, without status migrainosus 01/25/2023 20:02 [facility] TYPE: Emergency DIAGNOSES: - Cellulitis of left lower limb - Chest pain, unspecified - L FOOT PAIN [facility] DI[facility]ES: - Pain in left ankle and joints of left foot - Sprain of other ligament of left ankle, initial encounter - ems to triage - Leg Pain 01/23/2023 13[facility] DIAGNOSES: - Sprain of unspecified ligament of left ankle, initial encounter - Ankle Injury - EMS to Triage 01/22/2023 02:43 [facility] TYPE: Emergency DIAGNOSES: - Sprain of unspecified ligament of left ankle, initial encounter - Ankle injury 10/30/2022 15:52 [facility] TYPE: Emergency DIAGNOSES: - Chest pain, unspecified - Syncope and collapse - SOB/HEAT EXPOSURE 10/29/2022 16:14 [facility] [place] TYPE: Emergency DIAGNOSES: - Chest pain, unspecified - Unspecified abdominal pain - Chest Pain - EMS 10/15/2022 16:54 [facility] [place] [facility] TYPE: Emergency DIAGNOSES: - Acute and chronic respiratory failure, unspecified whether with hypoxia or hypercapnia - Moderate persistent asthma with (acute) exacerbation - SOB 10/10/2022 22:21 [facility] [place] TYPE: Emergency DIAGNOSES: - Other chest pain - Chest Pain - EMS - Shortness of Breath Plus 1 More Visit INPATIENT VISIT TRACKING (12 MO.) 10/04/2022 16:37 [facility] [place] TYPE: General Medicine DIAGNOSES: - Acute respiratory failure with hypoxia - Moderate persistent asthma with (acute) exacerbation - Other sites of candidiasis - Chest Pain - Shortness of Breath [id number]
[2023-08-11] MEDS ORDERED: ACETAMINOPHEN 500 MG TAB PO ONE (09:30)
[2023-08-11 09:38] VITALS: BP 158/91
[2023-08-13] MEDS ORDERED: ONDANSETRON ODT8 MG PO (12:45)
== END 2023-08-11 09:32 | disposition home or self-care (01) ==
LOC: ED 08:56
DX: M54.9 Dorsalgia, unspecified (principal); R59.0 Localized enlarged lymph nodes; I10 Essential (primary) hypertension; Z88.0 Allergy status to penicillin; Z88.8 Allergy status to other drugs, medicaments and biological substances
CPT/HCPCS: 99283; A9270

== ENCOUNTER 2023-08-18 23:29 | Emergency (ER) | payer MEDICARE ==
[~2023-08-18] VITALS: Ht 172.7 cm; Wt 85.0 kg
[~2023-08-18 23:29] MED LIST changes: +CARAFATE1 GM PO; +PROTONIX40 MG PO
--- OUTSIDE RECORDS SUMMARY | 2023-08-18 23:36 | XMS ---
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 Guidelines Source: [facility] Guidelines Date: 07/17/2022 Additional Information: Andria Fabian MD\T\nbsp;\T\nbsp; [address]\T\nbsp;\T\nbsp; [place] [address]\T\nbsp;\T\nbsp; \T\nbsp;\T\nbsp; \ T\nbsp;\T\nbsp; Additional care guidelines exist for the following facilities: [facility] ( 02/21/2018 ) Aureliano Pena ( 01/29/2017 ) Anai VISIT COUNT (12 MO.) [address] [address] Aureliano Pena TOTAL 31 NOTE: Visits indicate total known visits. ED/UCC VISIT TRACKING (12 MO.) 08/18/2023 23:30 [facility] [place] TYPE: Emergency COMPLAINT: - ANXIETY 08/18/2023 17:54 [facility] [place] TYPE: Emergency COMPLAINT: - BLOOD IN STOOL 08/18/2023 07:32 [facility] [place] TYPE: Emergency DIAGNOSES: - Malingerer [conscious simulation] - Other amnesia - NAUSEA AND VOMITING 08/17/2023 16:19 [facility] [place] TYPE: Emergency DIAGNOSES: - Contusion of left lower leg, initial encounter - Contusion of right lower leg, initial encounter - Encounter for observation for suspected ingested foreign body ruled out - LEG PAIN 08/17/2023 07:21 [facility] [place] TYPE: Emergency DIAGNOSES: - Diarrhea, unspecified - Headache, unspecified - Nausea with vomiting, unspecified - Other chronic pain - NAUSEA AND VOMITING 08/16/2023 12:47 [facility] [place] TYPE: Emergency DIAGNOSES: - Headache, unspecified - CHEST PAIN BACK PAIN 08/16/2023 07:25 [facility] [place] TYPE: Emergency DIAGNOSES: - Chest pain, unspecified - Headache, unspecified - Homelessness unspecified - CHEST PAIN 08/15/2023 19:23 [facility] [place] TYPE: Emergency DIAGNOSES: - Candidiasis of skin and nail - Cellulitis of abdominal wall - Migraine, unspecified, not intractable, without status migrainosus - Unspecified abdominal pain - Flank Pain/ Wound Check 08/14/2023 11:21 [facility] [place] TYPE: Emergency COMPLAINT: - VOMITING DIAGNOSES: - Allergy status to other drugs, medicaments and biological substances - Essential (primary) hypertension - Hematemesis 08/13/2023 10:07 [facility] [place] TYPE: Emergency COMPLAINT: - LOW BACK/CHEST PAIN DIAGNOSES: - Allergy status to analgesic agent - Allergy status to other drugs, medicaments and biological substances - Allergy to other foods - Chest pain, unspecified - Dehydration - Essential (primary) hypertension - Migraine, unspecified, not intractable, without status migrainosus - Other correction (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 - Unspecified asthma, uncomplicated 08/11/2023 08:[address] [facility] [place] TYPE: Emergency COMPLAINT: - BACK PAIN DIAGNOSES: - Allergy status to other drugs, medicaments and biological substances - Allergy status to penicillin - Dorsalgia, unspecified - Essential (primary) hypertension - Localized enlarged lymph nodes 08/10/2023 09:27 [facility] [place] TYPE: Emergency COMPLAINT: - SHORTNESS OF BREATH DIAGNOSES: - Allergy status to other drugs, medicaments and biological substances - Essential (primary) hypertension - Headache, unspecified - Migraine, unspecified, not intractable, without status migrainosus - Unspecified abdominal pain 08/08/2023 12:22 [facility] [place] TYPE: Emergency COMPLAINT: - CHEST PAIN DIAGNOSES: - Acquired absence of other specified parts of digestive tract - Allergy status to analgesic agent - Allergy status to other drugs, medicaments and biological substances - Allergy to other foods - Chest pain, unspecified - Essential (primary) hypertension - Other chest pain 08/06/2023 10:54 [facility] [place] TYPE: Emergency COMPLAINT: - KIDNEY PAIN DIAGNOSES: - Allergy status to analgesic agent - Allergy status to other drugs, medicaments and biological substances - Allergy to other foods - Essential (primary) hypertension - Nausea with vomiting, unspecified - Unspecified abdominal pain 08/03/2023 16:16 [facility] [place] TYPE: Emergency COMPLAINT: - CHEST PAIN DIAGNOSES: - Allergy status to analgesic agent - Allergy status to other drugs, medicaments and biological substances - Allergy to other foods - Essential (primary) hypertension - Other chest pain - Procedure and treatment not carried out because of patient's decision for other reasons 08/02/2023 20:34 [facility] [place] TYPE: Emergency COMPLAINT: - TOOTHACHE DIAGNOSES: - Allergy status to other drugs, medicaments and biological substances - Essential (primary) hypertension - Other specified disorders of teeth and supporting structures - Periapical abscess without sinus 07/31/2023 17:52 [facility] [place] TYPE: Emergency COMPLAINT: - ANXIETY 07/31/2023 14:11 [facility] [place] TYPE: Emergency COMPLAINT: - CHEST PAIN DIAGNOSES: - Allergy status to narcotic agent - Allergy status to other drugs, medicaments and biological substances - Essential (primary) hypertension - Headache, unspecified - Other chest pain - Procedure and treatment not carried out because of patient's decision for other reasons 07/30/2023 00:56 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 [place] TYPE: Emergency COMPLAINT: - HEADACHE DIAGNOSES: - Allergy status to narcotic agent - Allergy status to other drugs, medicaments and biological substances - Essential (primary) hypertension - Headache, unspecified - Migraine, unspecified, not intractable, without status migrainosus Plus 11 More Visits INPATIENT VISIT TRACKING (12 MO.) 10/04/2022 16:37 [facility] [place] TYPE: General Medicine DIAGNOSES: - Acute respiratory failure with hypoxia - Moderate persistent asthma with (acute) exacerbation - Other sites of candidiasis - Chest Pain - Shortness of Breath [email or web address]
[2023-08-18] MEDS ORDERED: diphenhydrAMINE HCL 50 MG/ML VIAL IM ONE (23:45)
[2023-08-18] MEDS ORDERED: OLANZapine 10 MG VIAL IM ONE (23:45)
[2023-08-19] MEDS ORDERED: ZYPREXA5 MG PO (00:11)
[2023-08-19] MEDS ORDERED: hydrOXYzine pamoate 50 MG HOME.PACK PO ONE (00:15)
[2023-08-19] MEDS ORDERED: hydrOXYzine pamoate 50 MG HOME.PACK ONE (00:22)
[2023-08-19 00:56] VITALS: BP 138/81
[2023-08-20] MEDS ORDERED: DIFLUCAN200 MG PO (20:30)
[2023-08-21] MEDS ORDERED: LOMOTIL TABLET1 EACH PO (01:50)
[2023-08-21] MEDS ORDERED: PROMETHEGAN25 MG PR (01:52)
== END 2023-08-19 01:03 | disposition home or self-care (01) ==
LOC: ED 23:29
DX: F41.0 Panic disorder [episodic paroxysmal anxiety] (principal); I10 Essential (primary) hypertension; G43.909 Migraine, unspecified, not intractable, without status migrainosus; J45.909 Unspecified asthma, uncomplicated; Z88.8 Allergy status to other drugs, medicaments and biological substances; Z79.899 Other long term (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
CPT/HCPCS: 96372; 99283

== ENCOUNTER 2023-08-20 17:27 | Emergency (ER) | payer MEDICARE ==
[~2023-08-20] VITALS: Ht 172.7 cm; Wt 96.6 kg
--- OUTSIDE RECORDS SUMMARY | ~2023-08-20 | XMS | Continuity of Care Document ---
Demographics + + + | Address | [address] | | | [place] [address] | + + + | Preferred Language | Unknown | + + + | Marital Status | unknown | + + + | Lutheran Affiliation | Unknown | + + + | Race | White | + + + | Ethnic Group | Not or | + + + Author + + + | Author | [facility] | + + + | Organization | [facility] | + + + | Address | [address] | | | [place] [address] | + + + | Phone | | + + + Care Team Providers + + + + | Care Special Education Coordinator Name | Role | Phone | + [...]
[~2023-08-20 17:27] MED LIST changes: +ZYPREXA5 MG PO
--- OUTSIDE RECORDS SUMMARY | 2023-08-20 17:34 | XMS ---
PreManage Notification: ADAM DIAS Security Neurology Director Events No recent Security Events currently on file CRITERIA MET - 6 ED Visits in 6 Months - [facility] - 2 Visits in 30 Days - [facility] - Has Care Guidelines CARE PROVIDERS There are no care providers on record at this time. Guidelines Source: [facility] Guidelines Date: 07/17/2022 Additional Information: Andria Fabian MD\T\nbsp;\T\nbsp; [address]\T\nbsp;\T\nbsp; [place] [address]\T\nbsp;\T\nbsp; \T\nbsp;\T\nbsp; \ T\nbsp;\T\nbsp; Additional care guidelines exist for the following facilities: [facility] ( 02/21/2018 ) Aureliano Pena ( 01/29/2017 ) [place] VISIT COUNT (12 MO.) [address] [address] Aureliano Pena TOTAL 32 NOTE: Visits indicate total known visits. ED/UCC VISIT TRACKING (12 MO.) 08/20/2023 17:28 [facility] [place] TYPE: Emergency COMPLAINT: - VOMITING, FEVER, BACK PAIN 08/18/2023 23:30 [facility] [place] TYPE: Emergency COMPLAINT: - ANXIETY 08/18/2023 17:54 [facility] [place] TYPE: Emergency COMPLAINT: - BLOOD IN STOOL 08/18/2023 07:32 [facility] [place] TYPE: Emergency DIAGNOSES: - Malingerer [conscious simulation] - Other amnesia - NAUSEA AND VOMITING 08/17/2023 16:19 [facility] [employer] [place] TYPE: Emergency DIAGNOSES: - Contusion of left lower leg, initial encounter - Contusion of right lower leg, initial encounter - Encounter for observation for suspected ingested foreign body ruled out - LEG PAIN 08/17/2023 07:21 [facility] [employer] [place] TYPE: Emergency DIAGNOSES: - Diarrhea, unspecified - Headache, unspecified - Nausea with vomiting, unspecified - Other chronic pain - NAUSEA AND VOMITING 08/16/2023 12:47 [facility] [place] TYPE: Emergency DIAGNOSES: - Headache, unspecified - CHEST PAIN BACK PAIN 08/16/2023 07:25 [facility] [place] TYPE: Emergency DIAGNOSES: - Chest pain, unspecified - Headache, unspecified - Homelessness unspecified - CHEST PAIN 08/15/2023 19:23 [facility] [place] TYPE: Emergency DIAGNOSES: - Candidiasis of skin and nail - Cellulitis of abdominal wall - Migraine, unspecified, not intractable, without status migrainosus - Unspecified abdominal pain - Flank Pain/ Wound Check 08/14/2023 11:21 [facility] [place] TYPE: Emergency COMPLAINT: - VOMITING DIAGNOSES: [...] not intractable, without status migrainosus - Other fci (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 - Unspecified asthma, uncomplicated 08/11/2023 08:[address] [facility] [place] TYPE: Emergency COMPLAINT: - BACK PAIN DIAGNOSES: - Allergy status to other drugs, medicaments and biological substances - Allergy status to penicillin - Dorsalgia, unspecified - Essential (primary) hypertension - Localized enlarged lymph nodes 08/10/2023 09:[address] [facility] [place] TYPE: Emergency COMPLAINT: - SHORTNESS OF BREATH DIAGNOSES: - Allergy status to other drugs, medicaments and biological substances - Essential (primary) hypertension - Headache, unspecified - Migraine, unspecified, not intractable, without status migrainosus - Unspecified abdominal pain 08/08/2023 12:[address] [facility] [place] TYPE: Emergency COMPLAINT: [...] sinus 07/31/2023 17:[address] [facility] [place] TYPE: Emergency COMPLAINT: - ANXIETY 07/31/2023 14:[address] [facility] [place] TYPE: Emergency COMPLAINT: - CHEST PAIN DIAGNOSES: - Allergy status to narcotic agent - Allergy status to other drugs, medicaments and biological substances - Essential (primary) hypertension - Headache, unspecified - Other chest pain - Procedure and treatment not carried out because of patient's decision for other reasons 07/30/2023 00:[address] 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
[2023-08-20] MEDS ORDERED: ONDANSETRON 4 MG TAB ODT SL ONE (19:45)
[2023-08-20 19:57] LABS: HEMOGLOBIN 12.3 g/dL (12.0-18.0); MCH 27.7 (27-36)
[2023-08-20 19:59] LABS: BASOPHILS 0.3 % (0-2); EOSINOPHILS 0.4 % (0-6); HEMATOCRIT 37.3 % (35.0-50.0); LYMPHOCYTES 8.7 % (24-44); MCHC 32.9 g/dl (30-36); MCV 84.3 fl (81-99); MONOCYTES 8.3 % (0-12); NEUTROPHILS 82.3 % (39-80); PLATELET COUNT 244 K/uL (140-440); RBC 4.42 M/ul (4.3-5.7); RDW 16.4 (10.5-15.0)
[2023-08-20 20:12] LABS: ALBUMIN 3.4 g/dL (3.4-5.0); ANION GAP 14.1 (7-21); BILIRUBIN, TOTAL 0.9 ng/dL (0.2-1.0); BUN/CREATININE RATIO 15.9 (6.0-28.6); CALCIUM 9.1 mg/dL (8.5-10.1); CREATININE, SERUM 0.88 mg/dL (0.55-1.02); POTASSIUM 3.1 mmol/L (3.5-5.1); PROTEIN, TOTAL 6.8 g/dL (6.4-8.2)
[2023-08-20] MEDS ORDERED: DIFLUCAN200 MG PO (20:30)
[2023-08-20] MEDS ORDERED: FLUCONAZOLE 200 MG TAB PO ONE (20:30)
[2023-08-20] MEDS ORDERED: MICONAZOLE NITRATE 1 EA BTL TOP ONE (20:30)
[2023-08-20 21:10] VITALS: BP 170/63
[2023-08-21] MEDS ORDERED: LOMOTIL TABLET1 EACH PO (01:50)
[2023-08-21] MEDS ORDERED: PROMETHEGAN25 MG PR (01:52)
== END 2023-08-20 21:13 | disposition home or self-care (01) ==
LOC: ED 17:27
PROVIDERS: Family Medicine
DX: B37.2 Candidiasis of skin and nail (principal); I10 Essential (primary) hypertension; Z88.8 Allergy status to other drugs, medicaments and biological substances; Z79.899 Other long term (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
CPT/HCPCS: 36415; 80053; 85025; A9270

== ENCOUNTER 2023-09-03 21:42 | Emergency (ER) | payer MEDICARE ==
[~2023-09-03] VITALS: Ht 172.7 cm; Wt 77.3 kg
--- OUTSIDE RECORDS SUMMARY | ~2023-09-03 | XMS | Continuity of Care Document ---
Demographics + + + | Address | [address] | | | [place] [address] | + + + | Preferred Language | Unknown | + + + | Marital Status | unknown | + + + | Presybeterian Affiliation | Unknown | + + + | Race | White | + + + | Ethnic Group | Not or | + + + Author + + + | Author | [facility] | + + + | Organization | [facility] | + + + | Address | [address] | | | [place] [address] | + + + | Phone | | + + + Care Team Providers + + + + | Care Ux Lead Name | Role | Phone | + [...]
[~2023-09-03 21:42] MED LIST changes: +DIFLUCAN200 MG PO; +LOMOTIL TABLET1 EACH PO; +PROMETHEGAN25 MG PR
--- OUTSIDE RECORDS SUMMARY | 2023-09-03 21:44 | XMS ---
PreManage Notification: ADAM DIAS Security Care Trainer Events No recent Security Events currently on file CRITERIA MET - 6 ED Visits in 6 Months - [facility] - 2 Visits in 30 Days - [facility] - 3 Facilities in 90 Days - [facility] - Has Care Guidelines CARE PROVIDERS There are no care providers on record at this time. Guidelines Source: [facility] Guidelines Date: 07/17/2022 Additional Information: Andria Fabian MD\T\nbsp;\T\nbsp; [address]\T\nbsp;\T\nbsp; [place] [address]\T\nbsp;\T\nbsp; \T\nbsp;\T\nbsp; \ T\nbsp;\T\nbsp; Additional care guidelines exist for the following facilities: [facility] ( 02/21/2018 ) [facility] VISIT COUNT (12 MO.) 19 [facility] 8 [facility] [address] [facility] 4 [facility] 3 [facility] 3 Tish Morrow TOTAL 42 NOTE: Visits indicate total known visits. ED/UCC VISIT TRACKING (12 MO.) 09/03/2023 21:[address] [facility] TYPE: Emergency COMPLAINT: - RIB PAIN 08/31/2023 10:34 Tish Valdovinos [place] TYPE: Emergency COMPLAINT: - Fall_fall - PLEURODYNIA DIAGNOSES: 0. Pleurodynia 1. Pleurodynia 3. Unspecified fall, initial encounter 08[facility]2023 19[facility] COMPLAINT: - CHEST PAIN UNSPECIFIED - Chest [id number] DIAGNOSES: 0. Chest pain, unspecified 1. Other chest pain 08/28/2023 16:39 [facility] TYPE: Emergency DIAGNOSES: - Low back pain, unspecified - Pain in right leg - Back Pain 08/27/2023 10:48 [facility] TYPE: Emergency DIAGNOSES: - Gastric varices - Other chest pain - Solitary pulmonary nodule - Chest Pain 08/24/2023 14:11 [facility] TYPE: Emergency DIAGNOSES: - Back Pain - Chest Pain - Urinary Complaint 08/23/2023 13:59 Tish Valdovinos [place] TYPE: Emergency COMPLAINT: - CHEST PAIN ON BREATHING - Knee Pain_[id number] - PAIN IN LEFT KNEE DIAGNOSES: 0. Pain in left knee 1. Contusion of left knee, initial encounter 4. Fall on same level from slipping, tripping and stumbling without subsequent striking against object, initial encounter 08/22/2023 07:47 [facility] [place] TYPE: Emergency DIAGNOSES: - Cervicalgia - Contusion of unspecified part of head, initial encounter - Pain in thoracic spine - Strain of muscle, fascia and tendon at neck level, initial encounter - Unspecified fall, initial encounter - Unspecified injury of head, initial encounter - BACK PAIN - FALL 08/21/2023 14:26 [facility] [facility] [place] TYPE: Emergency DIAGNOSES: - Erythema intertrigo - Low back pain, unspecified - Other chronic pain - KIDNEY PAIN 08/21/2023 00:41 [facility] [place] TYPE: Emergency COMPLAINT: - VOMITING DIAGNOSES: - Allergy status to other drugs, medicaments and biological substances - Essential (primary) hypertension - Nausea with vomiting, unspecified - Noninfective gastroenteritis and colitis, unspecified - Other rat exterminator (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 - Unspecified asthma, uncomplicated 08/20/2023 17:[address] [facility] [place] TYPE: Emergency COMPLAINT: - VOMITING, FEVER, BACK PAIN DIAGNOSES: - Allergy status to other drugs, medicaments and biological substances - Candidiasis of skin and nail - Essential (primary) hypertension - Other intermediate (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 - Rash and other nonspecific skin eruption 08/18/2023 23:30 [facility] [place] TYPE: Emergency COMPLAINT: - ANXIETY DIAGNOSES: - Allergy status to other drugs, medicaments and biological substances - Anxiety disorder, unspecified - Essential (primary) hypertension - Migraine, unspecified, not intractable, without status migrainosus - Other intermediate (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 - Panic disorder [episodic paroxysmal anxiety] - Unspecified asthma, uncomplicated 08/18/2023 17:54 [facility] [place] [facility] [place] TYPE: Emergency COMPLAINT: - BLOOD IN STOOL DIAGNOSES: - Abnormal levels of other serum enzymes - Allergy status to other drugs, medicaments and biological substances - Allergy to other foods - Diarrhea, unspecified - Essential (primary) hypertension - Generalized anxiety disorder - Major depressive disorder, single episode, unspecified - Unspecified abdominal pain - Unspecified asthma, uncomplicated 08/18/2023 07:32 [facility] [place] TYPE: Emergency DIAGNOSES: - Malingerer [conscious simulation] - Other amnesia - NAUSEA AND VOMITING 08/17/2023 16:19 [facility] [place] TYPE: Emergency DIAGNOSES: - Contusion of left lower leg, initial encounter - Contusion of right lower leg, initial encounter - Encounter for observation for suspected ingested foreign body ruled out - LEG PAIN 08/17/2023 07:21 [facility] [place] TYPE: Emergency DIAGNOSES: - Diarrhea, unspecified - Headache, unspecified - Nausea with vomiting, unspecified - Other chronic pain - NAUSEA AND VOMITING 08/16/2023 12:47 [facility] [place] TYPE: Emergency DIAGNOSES: - Headache, unspecified - CHEST PAIN BACK PAIN 08/16/2023 07:25 [facility] [place] TYPE: Emergency DIAGNOSES: - Chest pain, unspecified - Headache, unspecified - Homelessness unspecified - CHEST PAIN 08/15/2023 19:23 [facility] [place] TYPE: Emergency DIAGNOSES: - Candidiasis of skin and nail - Cellulitis of abdominal wall - Migraine, unspecified, not intractable, without status migrainosus - Unspecified abdominal pain - Flank Pain/ Wound Check 08/14/2023 11:21 [facility] [place] TYPE: Emergency COMPLAINT: - VOMITING DIAGNOSES: - Allergy status to other drugs, medicaments and biological substances - Essential (primary) hypertension - Hematemesis Plus 22 More Visits INPATIENT VISIT TRACKING (12 MO.) 10/04/2022 16:37 [facility] [place] TYPE: General Medicine DIAGNOSES: - Acute respiratory failure with hypoxia - Moderate persistent asthma with (acute) exacerbation - Other sites of candidiasis - Chest Pain - Shortness of Breath [id number]
[2023-09-03 22:16] VITALS: BP 186/87
[2023-09-04] MEDS ORDERED: BACTRIM DS TAB1 EACH PO (01:11)
[2023-09-04] MEDS ORDERED: FLONASE ALLERG9.9 ML NAS (01:11)
[2023-09-04] MEDS ORDERED: CEFDINIR300 MG PO (12:14)
== END 2023-09-03 22:16 | disposition home or self-care (01) ==
LOC: ED 21:42
DX: G89.29 Other chronic pain (principal); I10 Essential (primary) hypertension; Z88.8 Allergy status to other drugs, medicaments and biological substances; Z59.00 Homelessness unspecified
CPT/HCPCS: 99283

== ENCOUNTER 2023-09-04 22:16 | Emergency (ER) | payer MEDICARE ==
[~2023-09-04] VITALS: Ht 172.7 cm; Wt 78.0 kg
--- OUTSIDE RECORDS SUMMARY | ~2023-09-04 | XMS | Continuity of Care Document ---
Demographics + + + | Address | [address] | | | [place] [address] | + + + | Preferred Language | Unknown | + + + | Marital Status | unknown | + + + | Evangelical Affiliation | Unknown | + + + | Race | White | + + + | Ethnic Group | Not or | + + + Author + + + | Author | [facility] | + + + | Organization | [facility] | + + + | Address | [address] | | | [place] [address] | + + + | Phone | | + + + Care Team Providers + + + + | Care Collections Assistant Name | Role | Phone | + + + + Unavailable | Unavailable | + + + + Allergies No information. Encounters No information. Functional Status No information. Immunizations No information. Medications No information. Problems + + + + | date | description | facility | + + + + | 2023-07-09 16:35:06 | Chest Pain, Unspecified | [facility] | + + + + | 2023-07-10 20:47:06 | Chest Pain, Unspecified | [facility] | + + + + | 2023-07-10 20:47:06 | Other Nonspecific Abnormal | [facility] | | | Finding Of Lung Field | | + + + + | 2023-07-12 08:52:06 | Other Chest Pain | [facility] | + + + + | 2023-07-13 [...]
[~2023-09-04 22:16] MED LIST changes: +BACTRIM DS TAB1 EACH PO; +CEFDINIR300 MG PO; +FLONASE ALLERG9.9 ML NAS
--- OUTSIDE RECORDS SUMMARY | 2023-09-04 22:17 | XMS ---
PreManage Notification: ADAM DIAS Security Director Franchise Sales Events No recent Security Events currently on file CRITERIA MET - 6 ED Visits in 6 Months - [facility] - 2 Visits in 30 Days - [facility] - 3 Facilities in 90 Days - [facility] - Has Care Guidelines CARE PROVIDERS There are no care providers on record at this time. Guidelines Source: [facility] Guidelines Date: 07/17/2022 Additional Information: Andria Fabian MD\T\nbsp;\T\nbsp; [address]\T\nbsp;\T\nbsp; [place] [address]\T\nbsp;\T\nbsp; \T\nbsp;\T\nbsp; \ T\nbsp;\T\nbsp; Additional care guidelines exist for the following facilities: [facility] ( 02/21/2018 ) [facility] ( 01/29/2017 ) Anai VISIT COUNT (12 MO.) 22 [facility] 8 [facility] 5 [facility] 4 [facility] 3 [facility] 3 Tish Morrow TOTAL 45 NOTE: Visits indicate total known visits. ED/UCC VISIT TRACKING (12 MO.) 09/04/2023 22:17 [facility] [place] TYPE: Emergency COMPLAINT: - VOMITING 09/04/2023 10:53 [facility] [place] TYPE: Emergency COMPLAINT: - FLANK PAIN 09/03/2023 23:21 [facility] [place] TYPE: Emergency COMPLAINT: - NECK PAIN 09/03/2023 21:43 [facility] TYPE: Emergency COMPLAINT: - RIB PAIN 08/31/2023 10:34 Tish [facility] TYPE: Emergency COMPLAINT: - Fall_fall - PLEURODYNIA DIAGNOSES: 0. Pleurodynia 1. Pleurodynia 3. Unspecified fall, initial encounter 08/30/2023 19:06 Lisa Odalys [place] TYPE: Emergency COMPLAINT: - CHEST PAIN UNSPECIFIED [...] Pain - Urinary Complaint 08/23/2023 13:59 [facility] [place] [facility] COMPLAINT: - CHEST PAIN ON BREATHING - Knee Pain_[id number] - PAIN IN LEFT KNEE DIAGNOSES: 0. Pain in left knee 1. Contusion of left knee, initial encounter 4. Fall on same level from slipping, tripping and stumbling without subsequent striking against object, initial encounter 08/22/2023 07:47 [facility] [place] TYPE: Emergency DIAGNOSES: - Cervicalgia - Contusion of unspecified part of head, initial encounter - Pain in thoracic spine - Strain of muscle, fascia and tendon at neck level, initial encounter - Unspecified fall, initial encounter - Unspecified injury of head, initial encounter - BACK PAIN - FALL 08/21/2023 14:26 [facility] [place] TYPE: Emergency DIAGNOSES: - Erythema intertrigo - Low back pain, unspecified - Other chronic pain - KIDNEY PAIN 08/21/2023 00:41 [facility] [place] TYPE: Emergency COMPLAINT: - VOMITING DIAGNOSES: - Allergy status to other drugs, medicaments and biological substances - Essential (primary) hypertension - Nausea with vomiting, unspecified - Noninfective gastroenteritis and colitis, unspecified - Other [facility] (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 - Unspecified asthma, uncomplicated 08/20/2023 17:28 [facility] [place] TYPE: Emergency COMPLAINT: - VOMITING, FEVER, BACK PAIN DIAGNOSES: - Allergy status to other drugs, medicaments and biological substances - Candidiasis of skin and nail - Essential (primary) hypertension - Other superintendent marine [employer] (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 - Rash and other nonspecific skin eruption 08/18/2023 23:30 [facility] [place] TYPE: Emergency COMPLAINT: - ANXIETY DIAGNOSES: - Allergy status to other drugs, medicaments and biological substances - Anxiety disorder, unspecified - Essential (primary) hypertension - Migraine, unspecified, not intractable, without status migrainosus - Other superintendent marine [employer] (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 - Panic disorder [episodic paroxysmal anxiety] - Unspecified asthma, uncomplicated 08/18/2023 17:54 [facility] [place] TYPE: Emergency COMPLAINT: - BLOOD IN STOOL DIAGNOSES: - Abnormal levels of other serum enzymes - Allergy status to other drugs, medicaments and biological substances - Allergy to other foods - Diarrhea, unspecified - Essential (primary) hypertension - Generalized anxiety disorder - Major depressive disorder, single episode, unspecified - Unspecified abdominal pain - Unspecified asthma, uncomplicated 08/18/2023 07:32 [facility] [place] TYPE: Emergency DIAGNOSES: - Malingerer [conscious simulation] - Other amnesia - NAUSEA AND VOMITING 08/17/2023 16:19 [facility] [place] TYPE: Emergency DIAGNOSES: - Contusion of left lower leg, initial encounter - Contusion of right lower leg, initial encounter - Encounter for observation for suspected ingested foreign body ruled out - LEG PAIN 08/17/2023 07:21 [facility] [place] TYPE: Emergency DIAGNOSES: - Diarrhea, unspecified - Headache, unspecified - Nausea with vomiting, unspecified - Other chronic pain - NAUSEA AND VOMITING 08/16/2023 12:47 [facility] [place] TYPE: Emergency DIAGNOSES: - Headache, unspecified - CHEST PAIN BACK PAIN Plus 25 More Visits INPATIENT VISIT TRACKING (12 MO.) 10/04/2022 16:37 [facility] [place] TYPE: General Medicine DIAGNOSES: - Acute respiratory failure with hypoxia - Moderate persistent asthma with (acute) exacerbation - Other sites of candidiasis - Chest Pain - Shortness of Breath [id number]
[2023-09-04] MEDS ORDERED: LACTATED RINGER'S 1,000 ML IV ONE (23:00)
[2023-09-04] MEDS ORDERED: ondansetron HCL 4 MG/2 ML VIAL IV ONE (23:00)
[2023-09-04] MEDS ORDERED: ONDANSETRON 4 MG HOME.PACK SL ONE (23:30)
[2023-09-04 23:34] LABS: BASOPHILS 0.5 % (0-2); EOSINOPHILS 2.4 % (0-6); HEMATOCRIT 39.7 % (35.0-50.0); LYMPHOCYTES 19.2 % (24-44); MCH 27.8 (27-36); MCHC 32.8 g/dl (30-36); MCV 84.8 fl (81-99); MONOCYTES 8.4 % (0-12); NEUTROPHILS 69.5 % (39-80); PLATELET COUNT 213 K/uL (140-440); RBC 4.69 M/ul (4.3-5.7); RDW 16.6 (10.5-15.0)
[2023-09-04 23:50] LABS: ALBUMIN 3.7 g/dL (3.4-5.0); ALBUMIN/GLOBULIN RATIO 0.97 (1.1-2.4); ANION GAP 13.2 (7-21); BILIRUBIN, TOTAL 0.6 ng/dL (0.2-1.0); BUN/CREATININE RATIO 15.21 (6.0-28.6); CALCIUM 9.3 mg/dL (8.5-10.1); CREATININE, SERUM 0.92 mg/dL (0.55-1.02); POTASSIUM 4.2 mmol/L (3.5-5.1); PROTEIN, TOTAL 7.5 g/dL (6.4-8.2)
[2023-09-05 00:27] VITALS: BP 179/70
== END 2023-09-05 00:33 | disposition home or self-care (01) ==
LOC: ED 22:16
PROVIDERS: Internal Medicine
DX: R11.2 Nausea with vomiting, unspecified (principal); Z59.00 Homelessness unspecified; Z76.5 Malingerer [conscious simulation]; I10 Essential (primary) hypertension; J45.909 Unspecified asthma, uncomplicated; Z88.6 Allergy status to analgesic agent; Z88.8 Allergy status to other drugs, medicaments and biological substances; Z79.899 Other long term (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
CPT/HCPCS: 36415; 80053; 85025; A9270

== ENCOUNTER 2023-10-11 08:38 | Emergency (ER) | payer MEDICARE ==
[~2023-10-11] VITALS: Ht 172.7 cm; Wt 99.7 kg
--- OUTSIDE RECORDS SUMMARY | ~2023-10-11 | XMS | Continuity of Care Document ---
Demographics + + + | Address | [address] | | | [place] [address] | + + + | Preferred Language | Unknown | + + + | Marital Status | unknown | + + + | Latter-Day Affiliation | Unknown | + + + | Race | White | + + + | Ethnic Group | Not or | + + + Author + + + | Author | [facility] | + + + | Organization | [facility] | + + + | Address | [address] | | | [place] [address] | + + + | Phone | | + + + Care Team Providers + + + + | Care Motor Assembler Name | Role | Phone | + + + + Unavailable | Unavailable | + + + + Allergies No information. Encounters No information. Functional Status No information. Immunizations No information. Medications No information. Problems + + + + | date | description | facility | + + + + | 2023-07-13 14:57:06 | Cellulitis Of Left Toe | [facility] | + + + + | 2023-07-16 15:46:06 | Chest Pain, Unspecified | [facility] | + + + + | 2023-07-17 11:51:06 | Contusion Of Abdominal | [facility] | | | Wall (Initial Encounter) | | + + + + | 2023-07-17 11:51:06 | Malingerer [conscious | [facility] | | | Simulation] | | + + + + | 2023-07-24 04:10:06 | Chest Pain, Unspecified | [facility] | + + + + Procedures No information. Results/Labs No information. Social History +--------+ + + | date | description | facility | +--------+ + + Vital Signs No information."
--- OUTSIDE RECORDS SUMMARY | 2023-10-11 08:40 | XMS ---
PreManage Notification: ADAM DIAS Security Insurance Follow Up Specialist Events No recent Security Events currently on file CRITERIA MET - 6 ED Visits in 6 Months - [facility] - 2 Visits in 30 Days - [facility] - 3 Facilities in 90 Days - [facility] - Has Care Guidelines CARE PROVIDERS There are no care providers on record at this time. Guidelines Source: [facility] Guidelines Date: 07/17/2022 Additional Information: Andria Fabian MD\T\nbsp;\T\nbsp; [address]\T\nbsp;\T\nbsp; [place] [address]\T\nbsp;\T\nbsp; \T\nbsp;\T\nbsp; \ T\nbsp;\T\nbsp; Additional care guidelines exist for the following facilities: [facility] ( 02/21/2018 ) [facility] ( 01/29/2017 ) Anai VISIT COUNT (12 MO.) 25 [facility] 10 [facility] 6 [facility] 4 [facility] 3 [facility] 3 [facility] 2 Morgan Saunders ([facility]) TOTAL 53 NOTE: Visits indicate total known visits. ED/UCC VISIT TRACKING (12 MO.) 10/11/2023 08:39 [facility] [place] TYPE: Emergency COMPLAINT: - FOOT PAIN 10/10/2023 07:17 [facility] [place] TYPE: Emergency COMPLAINT: - FLU SYMPTOMS 10/05/2023 13:57 [facility] [place] TYPE: Emergency DIAGNOSES: - Sprain of unspecified ligament of left ankle, initial encounter - Ankle Injury - Ankle Pain 10/04/2023 19:02 [facility] [place] TYPE: Emergency DIAGNOSES: - Candidiasis of skin and nail - Rash - Shortness of Breath - SOB 10/04/2023 09:08 [facility] [place] TYPE: Emergency COMPLAINT: - Abdominal pain_abd pain - PRURITUS UNSPECIFIED - UNSPECIFIED ABDOMINAL PAIN DIAGNOSES: 0. Unspecified abdominal pain 1. Unspecified abdominal pain 4. Other chronic pain 5. Candidiasis of skin and nail 6. Homelessness unspecified 10/03/2023 21:16 Lisa Odalys [place] TYPE: Emergency COMPLAINT: - Abdominal pain_ABD PAIN - LOWER ABDOMINAL PAIN UNSPECIFIED - NAUSEA DIAGNOSES: 0. Lower abdominal pain, unspecified 1. Unspecified abdominal pain 10[facility]03[facility]2023 13[facility] COMPLAINT: - CHEST PAIN UNSPECIFIED - Chest [id number] DIAGNOSES: 0. Chest pain, unspecified 1. Chest pain, unspecified 09/14/2023 12:28 [facility] [place] TYPE: Emergency DIAGNOSES: - Diarrhea, unspecified - Nausea with vomiting, unspecified - DIZZINESS LIGHTHEADED 09/12/2023 08:32 [facility] [place] TYPE: Emergency DIAGNOSES: - Dorsalgia, unspecified - SHORTNESS OF BREATH RIB PAIN - SHORTNESS OFBREATH RIB PAIN 09/05/2023 09:08 [facility] [place] TYPE: Emergency COMPLAINT: - LEG PAIN DIAGNOSES: - Allergy status to analgesic agent - Allergy status to other drugs, medicaments and biological substances - Chest pain, unspecified - Essential (primary) hypertension - Other still tender (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 - Unspecified asthma, uncomplicated 09/04/2023 22:17 [facility] [place] TYPE: Emergency COMPLAINT: - VOMITING DIAGNOSES: - Allergy status to analgesic agent - Allergy status to other drugs, medicaments and biological substances - Essential (primary) hypertension - Homelessness unspecified - Malingerer [conscious simulation] - Nausea with vomiting, unspecified - Other shelter (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 - Unspecified asthma, uncomplicated 09/04/2023 10:53 [facility] [place] TYPE: Emergency COMPLAINT: - FLANK PAIN DIAGNOSES: - Allergy status to other drugs, medicaments and biological substances - Essential (primary) hypertension - Presence of artificial knee joint, bilateral - Unspecified abdominal pain - Urinary tract infection, site not specified 09/03/2023 23:21 [facility] [place] [facility] [place] TYPE: Emergency COMPLAINT: - NECK PAIN DIAGNOSES: - Allergy status to analgesic agent - Allergy status to other drugs, medicaments and biological substances - Cervicalgia - Chronic sinusitis, unspecified - Essential (primary) hypertension - Malingerer [conscious simulation] - Unspecified asthma, uncomplicated 09/03/2023 21:43 [facility] [place] TYPE: Emergency COMPLAINT: - RIB PAIN DIAGNOSES: - Allergy status to other drugs, medicaments and biological substances - Essential (primary) hypertension - Homelessness unspecified - Other chronic pain 08/31/2023 10:34 Tish MICHELLE TYPE: Emergency COMPLAINT: - Fall_fall - PLEURODYNIA DIAGNOSES: 0. Pleurodynia 1. Pleurodynia 3. Unspecified fall, initial encounter 08/30/2023 19:06 Lisa Odalys [place] TYPE: Emergency COMPLAINT: - CHEST PAIN UNSPECIFIED - Chest Pain_[id number] DIAGNOSES: 0. Chest pain, unspecified 1. Other chest pain 08/28/2023 16:39 [facility] TYPE: Emergency DIAGNOSES: - Low back pain, unspecified - Pain in right leg - Back Pain 08/27/2023 10:48 [facility] TYPE: Emergency DIAGNOSES: - Gastric varices - Other chest pain - Solitary pulmonary nodule - Chest Pain 08/24/2023 14:11 [facility] TYPE: Emergency DIAGNOSES: - Back Pain - Chest Pain - Urinary Complaint 08/23/2023 13:59 Tish Valdovinos [place] TYPE: Emergency COMPLAINT: - CHEST PAIN ON BREATHING - Knee Pain_[id number] - PAIN IN LEFT KNEE DIAGNOSES: 0. Pain in left knee 1. Contusion of left knee, initial encounter 4. Fall on same level from slipping, tripping and stumbling without subsequent striking against object, initial encounter Plus 34 More Visits INPATIENT VISIT TRACKING (12 MO.) No inpatient visits to display in this time frame [id number]
[2023-10-11 09:06] VITALS: BP 219/83
== END 2023-10-11 09:06 | disposition home or self-care (01) ==
LOC: ED 08:38
DX: M79.672 Pain in left foot (principal); M79.671 Pain in right foot; Z59.00 Homelessness unspecified; I10 Essential (primary) hypertension; J45.909 Unspecified asthma, uncomplicated; Z88.8 Allergy status to other drugs, medicaments and biological substances; Z88.6 Allergy status to analgesic agent
CPT/HCPCS: 99283